=== PATIENT | male | born 1945 | race Caucasian/White ===

== ENCOUNTER 2023-12-12 21:58 | Inpatient (IN) | payer MEDICARE ==
[~2023-12-12] VITALS: Ht 170.2 cm; Wt 68.6 kg
[2023-12-12] MEDS ORDERED: LOSA100T31 PO (22:20)
[2023-12-12] MEDS ORDERED: APIX2.5T PO (22:20)
[2023-12-12 22:37] LABS: PLATELET COUNT (AUTO) 68 K/uL (152-348)
[2023-12-12 22:45] LABS: BASOPHILS % (AUTO) 0.4 % (0.0-2.0); DIFFERENTIAL COMMENT 0; HEMATOCRIT 39.7 % (36.7-47.1); HEMOGLOBIN 13.3 g/dL (12.5-16.3); LYMPHOCYTES # (AUTO) 1.1 K/uL (0.8-4.8); LYMPHOCYTES % (AUTO) 24.5 % (20.5-51.5); MEAN CORPUSCULAR HEMOGLOBIN 30.7 uug (23.8-33.4); MEAN CORPUSCULAR HGB CONC 34 g/dL (32.5-36.3); MEAN CORPUSCULAR VOLUME 91.8 fL (73.0-96.2); MONOCYTES # (AUTO) 0.4 K/uL (0.1-1.30); MONOCYTES % (AUTO) 8.6 % (0.0-11.0); NEUTROPHILS # (AUTO) 2.9 K/uL (1.8-8.9); NEUTROPHILS % (AUTO) 65.5 % (38.5-71.5); RED BLOOD CELL COUNT(AUTO) 4.32 MIL/uL (4.06-5.63); WHITE BLOOD COUNT (AUTO) 4.4 K/uL (3.6-10.2)
[2023-12-12 22:50] LABS: CALCIUM 9.5 mg/dL (8.5-10.1); CARBON DIOXIDE 30 mmol/L (21-32); CHLORIDE 106 mmol/L (98-107); CREATININE 1.4 mg/dL (0.6-1.3); GLUCOSE 156 mg/dL (74-106); POTASSIUM 4.4 mmol/L (3.5-5.1); SODIUM SERUM 143 mmol/L (136-145); UREA NITROGEN, BLOOD 11 mg/dL (7-18)
[2023-12-12 23:02] LABS: ALANINE AMINOTRANSFERASE 20 U/L (16-63); ALBUMIN 3.4 g/dL (3.4-5.0); ALKALINE PHOSPHATASE 104 U/L (50-136); ASPARTATE AMINOTRANSFERASE 23 U/L (15-37); BILIRUBIN,DIRECT 0.5 mg/dL (0.0-0.2); BILIRUBIN,TOTAL 1.9 mg/dL (0.2-1.0); NT-PRO BNP 186 pg/mL (0-125); TOTAL PROTEIN, SERUM 6.4 g/dL (6.4-8.2)
[2023-12-12 23:27] LABS: ANISOCYTOSIS 1+; EOSINOPHILS % (MANUAL) 1 % (0-8); LYMPHOCYTES % (MANUAL) 27 % (20-40); MONOCYTES % (MANUAL) 6 % (2-10); NEUTROPHILS % (MANUAL) 66 % (42-75); PLATELET ESTIMATE MARKED DECREASED
[2023-12-12] MEDS ORDERED: VANCOMYCIN IV 200 ML ONE (23:56)
[2023-12-13] MEDS: VANCOMYCIN IV 1,000 MG in IV DEXTROSE 5% 250 ML IV ONE ×2 (00:03→23:42)
[2023-12-13] MEDS ORDERED: ZOLPIDEM 5 MG TABLET PO PRN (02:00)
[2023-12-13] MEDS ORDERED: REMEDY ESSENTIAL ZINC PASTE 113 GM TP PRN (02:00)
[2023-12-13] MEDS ORDERED: ACETAMINOPHEN 325 MG TABLET PO PRN (02:00)
[2023-12-13] MEDS ORDERED: MAGNESIUM HYDROXIDE 30 ML LIQUID UDC PO PRN (02:00)
[2023-12-13] MEDS ORDERED: ENOXAPARIN SODIUM 40 MG/0.4 ML DISP.SYRIN SQ SCH (02:00)
[2023-12-13] MEDS ORDERED: ONDANSETRON 4 MG/2 ML VIAL IV PRN (02:00)
[2023-12-13 02:45] VITALS: BP 176/88; TEMP 97.4; O2SAT 99
[2023-12-13] MEDS: HYDROCODONE/APAP 5-325MG TABLET PO PRN (04:45)
[2023-12-13] MEDS: LOSARTAN POTASSIUM 50 MG TABLET PO SCH (04:46)
[2023-12-13 05:20] LABS: *BILIRUBIN,URIN NEGATIVE (NEGATIVE); *BLOOD, URINE NEGATIVE (NEGATIVE); *CLARITY,URINE CLEAR (CLEAR); *COLOR,URINE YELLOW (YELLOW); *KETONES,URINE NEGATIVE (NEGATIVE); *PROTEIN,URINE NEGATIVE (NEGATIVE); LEUKOCYTE ESTERASE ,URINE TRACE (NEGATIVE); NITRITE, URINE POSITIVE (NEGATIVE); PH,URINE 6.5 (5.0-8.0); UGLUCOSE NEGATIVE (NEGATIVE)
[2023-12-13 05:46] LABS: RBC,URINE NONE SEEN /HPF (0-3)
[2023-12-13 05:47] LABS: BACTERIA,URINE MANY /HPF (NONE SEEN); SQUAMOUS EPITHELIAL CELL,UR MODERATE /HPF (NONE SEEN)
[2023-12-13 06:27] VITALS: BP 147/77; TEMP 97.8; O2SAT 97
[2023-12-13] MEDS: APIXABAN 2.5 MG TABLET PO SCH (08:42)
[2023-12-13] MEDS: CEphaleXIN 500 MG CAPSULE PO SCH (08:45)
[2023-12-13] MEDS ORDERED: LOSARTAN POTASSIUM 50 MG TABLET PO SCH (09:00)
[2023-12-13 11:22] VITALS: BP 104/59; TEMP 98.3; O2SAT 97
[2023-12-13 15:08] LABS: *CREATININE,URINE 65.7 mg/dL (30-125); *URINE TOTAL PROTEIN RANDOM 14.1 mg/dL (<150/24HR)
[2023-12-13 16:46] VITALS: BP 156/76; TEMP 97.9; O2SAT 98
[2023-12-13 20:00] VITALS: BP 132/71; TEMP 97.9; O2SAT 96
[2023-12-14 06:00] VITALS: BP 132/67; TEMP 98.4; O2SAT 96
[2023-12-14 07:08] LABS: BASOPHILS % (AUTO) 0.4 % (0.0-2.0); EOSINOPHILS # (AUTO) 0.1 K/uL (0.0-0.7); EOSINOPHILS % (AUTO) 3.2 % (0.0-7.0); HEMOGLOBIN 11.3 g/dL (12.5-16.3); LYMPHOCYTES # (AUTO) 0.9 K/uL (0.8-4.8); LYMPHOCYTES % (AUTO) 20.8 % (20.5-51.5); MEAN CORPUSCULAR HEMOGLOBIN 30.9 uug (23.8-33.4); MEAN CORPUSCULAR HGB CONC 34 g/dL (32.5-36.3); MEAN CORPUSCULAR VOLUME 90.3 fL (73.0-96.2); MONOCYTES # (AUTO) 0.4 K/uL (0.1-1.30); MONOCYTES % (AUTO) 10.5 % (0.0-11.0); NEUTROPHILS # (AUTO) 2.7 K/uL (1.8-8.9); NEUTROPHILS % (AUTO) 65.1 % (38.5-71.5); PLATELET COUNT (AUTO) 60 K/uL (152-348); RED BLOOD CELL COUNT(AUTO) 3.65 MIL/uL (4.06-5.63); RED CELL DISTRIBUTION WIDTH 16.6 % (12.1-16.2); WHITE BLOOD COUNT (AUTO) 4.2 K/uL (3.6-10.2)
[2023-12-14 07:14] LABS: DIFFERENTIAL COMMENT 1
[2023-12-14 07:30] LABS: ALANINE AMINOTRANSFERASE 20 U/L (16-63); ALBUMIN 2.4 g/dL (3.4-5.0); ALKALINE PHOSPHATASE 82 U/L (50-136); ASPARTATE AMINOTRANSFERASE 15 U/L (15-37); BILIRUBIN,TOTAL 1.1 mg/dL (0.2-1.0); CALCIUM 8.1 mg/dL (8.5-10.1); CARBON DIOXIDE 30 mmol/L (21-32); CHLORIDE 106 mmol/L (98-107); CREATINE KINASE, TOTAL 43 U/L (39-308); GLUCOSE 93 mg/dL (74-106); MAGNESIUM 1.7 mg/dL (1.8-2.4); PHOSPHOROUS 2.8 mg/dL (2.5-4.9); POTASSIUM 3.7 mmol/L (3.5-5.1); SODIUM SERUM 139 mmol/L (136-145); TOTAL PROTEIN, SERUM 4.9 g/dL (6.4-8.2); UREA NITROGEN, BLOOD 11 mg/dL (7-18)
[2023-12-14 08:29] LABS: CHOLESTEROL 91 mg/dL (<200); HDL CHOLESTEROL 56 mg/dL (40-60); TRIGLYCERIDES 17 MG/DL (30-150)
[2023-12-14 11:37] VITALS: BP 113/52; TEMP 98.8; O2SAT 96
[2023-12-14] MEDS: MAGNESIUM OXIDE 400 MG TABLET PO ONE (12:34)
[2023-12-14] MEDS: VANCOMYCIN IV 1,000 MG in IV DEXTROSE 5% 250 ML IV SCH (15:15)
[2023-12-14 16:00] VITALS: BP 126/76; TEMP 98.8; O2SAT 94
[2023-12-14 20:00] VITALS: TEMP 98.3
[2023-12-15 06:00] VITALS: TEMP 98.9
[2023-12-15 08:00] VITALS: BP 151/79; TEMP 98.4; O2SAT 96
[2023-12-15 08:07] LABS: BASOPHILS % (AUTO) 0.5 % (0.0-2.0); EOSINOPHILS # (AUTO) 0.1 K/uL (0.0-0.7); EOSINOPHILS % (AUTO) 2.6 % (0.0-7.0); HEMATOCRIT 36.3 % (36.7-47.1); HEMOGLOBIN 12.2 g/dL (12.5-16.3); LYMPHOCYTES # (AUTO) 1.1 K/uL (0.8-4.8); LYMPHOCYTES % (AUTO) 22.8 % (20.5-51.5); MEAN CORPUSCULAR HEMOGLOBIN 30.4 uug (23.8-33.4); MEAN CORPUSCULAR HGB CONC 34 g/dL (32.5-36.3); MEAN CORPUSCULAR VOLUME 90.4 fL (73.0-96.2); MONOCYTES # (AUTO) 0.6 K/uL (0.1-1.30); NEUTROPHILS # (AUTO) 3.2 K/uL (1.8-8.9); NEUTROPHILS % (AUTO) 63.1 % (38.5-71.5); PLATELET COUNT (AUTO) 63 K/uL (152-348); RED BLOOD CELL COUNT(AUTO) 4.02 MIL/uL (4.06-5.63); RED CELL DISTRIBUTION WIDTH 16.4 % (12.1-16.2)
[2023-12-15 08:14] LABS: DIFFERENTIAL COMMENT 1
[2023-12-15 08:44] LABS: CALCIUM 8.4 mg/dL (8.5-10.1); CARBON DIOXIDE 31 mmol/L (21-32); CHLORIDE 105 mmol/L (98-107); CREATININE 1.1 mg/dL (0.6-1.3); GLUCOSE 93 mg/dL (74-106); MAGNESIUM 1.8 mg/dL (1.8-2.4); PHOSPHOROUS 2.5 mg/dL (2.5-4.9); POTASSIUM 3.9 mmol/L (3.5-5.1); SODIUM SERUM 138 mmol/L (136-145); UREA NITROGEN, BLOOD 10 mg/dL (7-18)
[2023-12-15 09:09] LABS: A/G RATIO 1.2 (0.7-1.7); ALBUMIN 2.4 g/dL (2.9-4.4); ALPHA-1-GLOBULIN 0.2 g/dL (0.0-0.4); ALPHA-2-GLOBULIN 0.5 g/dL (0.4-1.0); BETA GLOBULIN 0.5 g/dL (0.7-1.3); GAMMA GLOBULIN 0.8 g/dL (0.4-1.8); M-SPIKE 0.6 g/dL (Not Observed)
[2023-12-15] MEDS: APIXABAN 2.5 MG TABLET PO SCH (11:06)
[2023-12-15 11:29] VITALS: BP 159/84; TEMP 98.8; O2SAT 95
[2023-12-15] MEDS ORDERED: CEPH500C2 PO (15:06)
[2023-12-15] MEDS ORDERED: VANC1PIG IV (15:06)
[2023-12-15 16:24] VITALS: BP 136/69; TEMP 98.5; O2SAT 95
[2023-12-15 20:00] VITALS: BP 150/50; TEMP 98.7; O2SAT 96
[2023-12-16 06:00] VITALS: BP 148/81; TEMP 98; O2SAT 95
[2023-12-16] MEDS: VANCOMYCIN IV 1,000 MG in IV DEXTROSE 5% 250 ML IV SCH (08:08)
[2023-12-16 11:31] VITALS: BP 187/86; TEMP 98.4; O2SAT 95
[2023-12-16] MEDS: hydrALAZINE HCL 50 MG TABLET PO ONE (11:37)
[2023-12-16 13:05] LABS: IRON, SERUM 42 ug/dL (50-175)
[2023-12-16 13:27] LABS: *RHEUMATOID FACTOR SCREEN NEGATIVE (NEGATIVE)
[2023-12-16 13:32] LABS: FERRITIN 102 ng/mL (26-388)
[2023-12-16 15:51] VITALS: BP 112/53; TEMP 97.8; O2SAT 95
[2023-12-16 15:52] VITALS: TEMP 97.8
[2023-12-16 20:00] VITALS: BP 155/82; TEMP 98; O2SAT 98
[2023-12-17 05:13] LABS: FOLATE (FOLIC ACID), SERUM 9.1 ng/mL (>3.0)
[2023-12-17 06:00] VITALS: BP 152/82; TEMP 97.9; O2SAT 96
[2023-12-17 06:07] LABS: HEPATITIS B SURFACE AB, QUAL Non Reactive (.); HEPATITIS B SURFACE AG Negative (Negative); HEPATITIS C VIRUS ANTIBODY Non Reactive (Non Reactive)
[2023-12-17 06:59] LABS: CALCIUM 8.9 mg/dL (8.5-10.1); CARBON DIOXIDE 30 mmol/L (21-32); CHLORIDE 102 mmol/L (98-107); CREATININE 1.1 mg/dL (0.6-1.3); GLUCOSE 91 mg/dL (74-106); SODIUM SERUM 137 mmol/L (136-145); UREA NITROGEN, BLOOD 16 mg/dL (7-18)
[2023-12-17 08:11] LABS: *IMMUNOGLOBULIN G, SERUM 905 mg/dL (603-1613); IMMUNOGLOBULIN A, SERUM 70 mg/dL (61-437); IMMUNOGLOBULIN M, SERUM 65 mg/dL (15-143)
[2023-12-17 08:19] VITALS: BP 144/68; TEMP 98.5; O2SAT 95
[2023-12-17 09:06] LABS: *ANTI-SCLERODERMA-70 AB <0.2 AI (0.0-0.9); *RNP ANTIBODIES <0.2 AI (0.0-0.9); *SJOGREN'S ANTI-SS-A <0.2 AI (0.0-0.9); *SJOGREN'S ANTI-SS-B <0.2 AI (0.0-0.9); *SMITH ANTIBODIES <0.2 AI (0.0-0.9); ANTI-DNA(DS) AB, QN <1 IU/mL (0-9); ANTI-NUCLEAR AB DIRECT Negative (Negative); FREE KAPPA LT CHAINS SERUM 67.9 mg/L (3.3-19.4); FREE LAMBDA LT CHAIN SERUM 11.5 mg/L (5.7-26.3)
[2023-12-17 11:24] VITALS: BP 113/62; TEMP 97.5; O2SAT 95
[2023-12-17 15:39] VITALS: BP 142/79; TEMP 98.4; O2SAT 96
== END 2023-12-17 17:00 | DRG 602 ==
LOC: ER 22:01 → MEDSURG3 12-13 00:47
PROVIDERS: ADMIT Nurse Practitioner Acute Care; ATTEND Nurse Practitioner Acute Care
DX: L03.116 Cellulitis of left lower limb (principal); N17.0 Acute kidney failure with tubular necrosis; N39.0 Urinary tract infection, site not specified; C90.00 Multiple myeloma not having achieved remission; E44.1 Mild protein-calorie malnutrition; D68.59 Other primary thrombophilia; L03.115 Cellulitis of right lower limb; I12.9 Hypertensive chronic kidney disease with stage 1 through stage 4 chronic kidney disease, or unspecified chronic kidney disease; N18.30 Chronic kidney disease, stage 3 unspecified; I48.0 Paroxysmal atrial fibrillation; E88.09 Other disorders of plasma-protein metabolism, not elsewhere classified; M89.8X9 Other specified disorders of bone, unspecified site; Z79.01 Long term (current) use of anticoagulants; R29.6 Repeated falls; D69.6 Thrombocytopenia, unspecified; D64.9 Anemia, unspecified; M79.89 Other specified soft tissue disorders
CPT/HCPCS: 36415; 70030-TC; 71045; 72170; 73502; 76770; 82746; 82784; 83550; 83735; 83970; 84100; 84155; 84165; 84300; 84484; 85025; 86038; 86334; 86430; 86706; 86803; 87340; 93005; 93307; C1758; G0378; J3370; J7050